=== PATIENT | female | born 1980 | race Hispanic/Latino ===

== ENCOUNTER 2018-05-07 08:22 | Emergency (ER) | payer SELFPAY ==
[2018-05-07] MEDS ORDERED: HYDROCODONE/APAP 7.5/325 MG TAB ONE (08:51)
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
== END 2018-05-07 09:39 | disposition home or self-care (01) ==
LOC: ER 08:22
DX: M25.561 Pain in right knee (principal); V49.49XA Driver injured in collision with other motor vehicles in traffic accident, initial encounter; E11.9 Type 2 diabetes mellitus without complications; Z79.4 Long term (current) use of insulin
CPT/HCPCS: 72125; 99284

== ENCOUNTER 2022-11-26 15:35 | Observation (INO) | payer BC ==
--- OUTSIDE RECORDS SUMMARY | 2022-11-26 15:51 | XMS REPORT | Continuity of Care Document ---
:[address] [facility] t Address [address] [place] [id number] Care Team Providers Name Role Phone Gianni Tim Attending Clinician Unavailable Problems This patient has no known problems. Allergies, Adverse Reactions, Alerts This patient has no known allergies or adverse reactions. Medications This patient has no known medications. Procedures This patient has no known procedures. Encounters Start End Encounter Admission Attending Care Care Encounter Source Date/Time Date/Time Type Type Clinicians Facility Department ID 2022-11-25 Outpatient JE Tim [facility] [id number] Common 08:45:02 Gianni [id number] [facility] Results This patient has no known results.
[2022-11-26 17:15] LABS: Specific Gravity 1.018 (1.005-1.030)
[2022-11-26 17:29] LABS: Albumin 3.7 g/dL (3.4-5.0); Bilirubin Total 0.3 mg/dL (0.2-1.0); Potassium 3.8 mEq/L (3.5-5.1); Protein, Total 8.4 g/dL (6.4-8.2)
[2022-11-26 17:30] LABS: Hematocrit 15.6 % (36.0-45.0); Lymphocytes % 28.4 % (15.3-44.8); MCV 52.2 fL (80-100); MPV 8.5 fL (7.6-11.3)
--- NOTE | 2022-11-26 19:09 | EDPHYS ---
Physician Documentation [facility] Name: Christin Ferrera Age: 42 yrs Sex: Female : 1980 Arrival Date: 11/26/2022 Time: 15:35 Bed 13 Private MD: Patricia Timh ED Physician Nate Mackay HPI: 11/26 16:02 This 42 yrs old Female presents to ER via Ambulatory with complaints of bs3 Abnormal Lab Results. 16:02 42-year-old female presents with possibly low hemoglobin she saw her primary care bs3 doctor for the first time in a very long time where they did a whole bunch of blood work and she was referred in today she notes that she has been tired for approximately 5 years she denies any black stools or bright red blood per rectum she notes she gets fairly heavy periods. Historical: - Allergies: 15:46 NKA; ss - Home Meds: 15:46 None [Active]; ss - PMHx: 15:46 Diabetes - IDDM; ss - Immunization history:: Adult Immunizations up to date. - Social history:: Smoking status: Patient denies any tobacco usage or history of. ROS: 19:07 Constitutional: Negative for fever, chills bs3 19:07 All other systems are negative. Exam: 19:07 Constitutional: This is a well developed, well nourished patient who is awake, alert, bs3 and in no acute distress. Head/Face: Normocephalic, atraumatic. Eyes: pale conjunctiva ENT: mmm, no posterior phyarngeal erythema Neck: Trachea midline, no thyromegaly, no neck stiffness Chest/axilla: Normal chest wall appearance and motion. Nontender with no deformity. No lesions are appreciated. Cardiovascular: Regular rate and rhythm with a normal S1 and S2. symmetric pulses in upper extremities Respiratory: Lungs have equal breath sounds bilaterally, clear to auscultation, no respiratory distress Abdomen/GI: Soft, non-tender, no rebound or guarding Skin: Warm, dry with normal turgor. Normal color with no rashes, no lesions, and no evidence of cellulitis. MS/ Extremity: Pulses equal, no cyanosis. Neurovascular intact. Full, normal range of motion. Neuro: Awake and alert, GCS 15, oriented to person, place, time, and situation. Cranial nerves II-XII grossly intact. Motor strength 5/5 in all extremities. Sensory grossly intact. Vital Signs: 15:41 BP 135 / 59; Pulse 95; Resp 16; Temp 98.5; Pulse Ox 96% ; Weight 56.7 kg; Height 5 ft. ss 3 in. ; 17:00 BP 122 / 62; Pulse 87; Resp 18; Pulse Ox 100% on R/A; eh3 18:00 BP 136 / 72; Pulse 90; Resp 18; Pulse Ox 100% on R/A; eh3 19:00 BP 121 / 50; Pulse 111; Resp 18; Pulse Ox 100% on R/A; eh3 15:41 Body Mass Index 22.14 (56.70 kg, 160.02 cm) ss MDM: 15:49 Patient medically screened. bs3 19:07 Differential Diagnosis Possible electrolyte abnormality possible anemia she has pale bs3 conjunctival and poor capillary refill she has heavy periods we will check and reassess Lab work notable for iron deficiency anemia will give 2 units and repeat CBC likely needs 1/3 unit will admit given the number of transfusions Dr. Aislinn velez. Data reviewed: vital signs, nurses notes. 11/26 15:59 Order name: CBC with Diff 3 11/26 15:59 Order name: Comprehensive Metabolic Panel; Complete Time: 17:36 3 11/26 15:59 Order name: Type And Screen 3 11/26 15:59 Order name: Iron Level; Complete Time: 17:36 3 11/26 15:59 Order name: TIBC; Complete Time: 17:36 3 11/26 15:59 Order name: Ferritin 3 11/26 15:59 Order name: Test, Urine; Complete Time: 17:23 bs3 11/26 18:01 Order name: Bb Add On bd 11/26 18:11 Order name: Packed RBC Leukored [facility] 11/26 18:26 Order name: ABO/RH no charge; Complete Time: 18:36 EDTN 11/26 17:37 Order name: Consent for Blood Transfusion; Complete Time: 19:27 bs3 11/26 17:37 Order name: IV Saline Lock; Complete Time: 18:00 bs3 11/26 18:06 Order name: Labs - recollect needed: collect abo rh no charge; Complete Time: 18:13 bd Administered Medications: No medications were administered Disposition Summary: 11/26/22 19:09 Hospitalization Ordered Hospitalization Status: Inpatient Admission bs3 Provider: Pavel Tao bs3 Location: Telemetry/MedSurg (observation) bs3 Condition: Stable bs3 Problem: new bs3 Symptoms: have improved bs3 Bed/Room Type: Standard bs3 Room Assignment: 409(11/26/22 20:24) cg Diagnosis - Iron deficiency anemia, unspecified bs3 Forms: - Medication Reconciliation Form bs3 - SBAR form bs3 Signatures: Dispatcher [employer] EDMS Neyda Zaragoza Shelby, RN RN ss Heather Jerome RN RN cg Nate Mackay MD MD bs3 Corrections: (The following items were deleted from the chart) 15:47 15:46 Home Meds: Toujeo SoloStar 300 unit/mL (1.5 mL) subcutaneous inpn 14 units daily; [facility] 20:24 19:09 bs3 cg
--- NOTE | 2022-11-26 19:09 | ER ---
Nurse's Notes [facility] Name: Christin Ferrera Age: 42 yrs Sex: Female : 1980 Arrival Date: 11/26/2022 Time: 15:35 Bed 13 Private MD: Gianni Tim Diagnosis: Iron deficiency anemia, unspecified Presentation: 11/26 15:41 Chief complaint: Patient states: SENT BY PCP, RAN, FOR BLOOD TRANSFUSION. Coronavirus ss screen: At this time, the client does not indicate any symptoms associated with coronavirus-19. Ebola Screen: No symptoms or risks identified at this time. Initial Sepsis Screen: Does the patient meet any 2 criteria? No. Patient's initial sepsis screen is negative. Does the patient have a suspected source of infection? No. Patient's initial sepsis screen is negative. Risk Assessment: Do you want to hurt yourself or someone else? Patient reports no desire to harm self or others. Onset of symptoms is unknown. 15:41 Method Of Arrival: Ambulatory ss 15:41 Acuity: RUPESH 3 ss Triage Assessment: 15:46 General: Appears in no apparent distress. Behavior is calm, cooperative, appropriate ss for age. Pain: Denies pain. EENT: No deficits noted. Neuro: No deficits noted. Cardiovascular: No deficits noted. Respiratory: No deficits noted. GI: No signs and/or symptoms were reported involving the gastrointestinal system. : No signs and/or symptoms were reported regarding the genitourinary system. Derm: Skin is pale. Musculoskeletal: No deficits noted. Historical: - Allergies: 15:46 NKA; ss - Home Meds: 15:46 None [Active]; ss - PMHx: 15:46 Diabetes - IDDM; ss - Immunization history:: Adult Immunizations up to date. - Social history:: Smoking status: Patient denies any tobacco usage or history of. Screenin:00 [facility] ED Fall Risk Assessment (Adult) Score/Fall Risk Level 0 - 2 = Low Risk. Abuse eh3 screen: Denies threats or abuse. Denies injuries from another. Nutritional screening: No deficits noted. Tuberculosis screening: No symptoms or risk factors identified. Assessment: 17:00 General: Appears in no apparent distress. comfortable, Behavior is calm, cooperative, eh3 appropriate for age. Pain: Denies pain. Neuro: Level of Consciousness is awake, alert, obeys commands, Oriented to person, place, time, situation. Cardiovascular: Capillary refill < 3 seconds Patient's skin is warm and dry. Respiratory: Airway is patent Respiratory effort is even, unlabored, Respiratory pattern is regular, symmetrical. GI: Abdomen is round non-distended. Derm: Skin is healthy with good turgor, Skin is dry, Skin is pale, Skin temperature is warm. Musculoskeletal: Circulation, motion, and sensation intact. 18:00 Reassessment: Patient appears in no apparent distress at this time. Patient and/or eh3 family updated on plan of care and expected duration. Pain level reassessed. Patient is alert, oriented x 3, equal unlabored respirations, skin warm/dry/pink. 19:00 Reassessment: Patient appears in no apparent distress at this time. Patient and/or eh3 family updated on plan of care and expected duration. Pain level reassessed. Patient is alert, oriented x 3, equal unlabored respirations, skin warm/dry/pink. 20:00 Reassessment: Patient appears in no apparent distress at this time. Patient and/or eh3 family updated on plan of care and expected duration. Pain level reassessed. Patient is alert, oriented x 3, equal unlabored respirations, skin warm/dry/pink. 20:25 Reassessment: Blood transfusion started at 2024. See transfusion record for additional [facility] documentation. Vital Signs: 15:41 BP 135 / 59; Pulse 95; Resp 16; Temp 98.5; Pulse Ox 96% ; Weight 56.7 kg; Height 5 ft. ss 3 in. ; 17:00 BP 122 / 62; Pulse 87; Resp 18; Pulse Ox 100% on R/A; eh3 18:00 BP 136 / 72; Pulse 90; Resp 18; Pulse Ox 100% on R/A; eh3 19:00 BP 121 / 50; Pulse 111; Resp 18; Pulse Ox 100% on R/A; eh3 15:41 Body Mass Index 22.14 (56.70 kg, 160.02 cm) ED Course: 15:37 Patient arrived in ED. im 15:37 Gianni Tim DO is Private Physician. im 15:46 Triage completed. ss 15:46 Arm band placed on. ss 15:49 Nate Mackay MD is Attending Physician. bs3 17:00 Patient has correct armband on for positive identification. Bed in low position. Call 3 light in reach. 17:00 Pulse ox on. NIBP on. eh3 17:16 Anna Matamoros, RN is Primary Nurse. eh3 19:08 Pavel Tao MD is Hospitalizing Provider. bs3 20:50 No provider procedures requiring assistance completed. Patient admitted, IV remains in eh3 place. Administered Medications: No medications were administered Medication: 20:52 VIS not applicable for this client. as6 Outcome: 19:09 Decision to Hospitalize by Provider. bs3 20:51 Admitted to Tele accompanied by nurse, room 409, with chart, Report called to Sera DOWNING as6 20:51 Condition: stable 20:51 Instructed on the need for admit. 21:04 Patient left the ED. cm10 Signatures: Bettina Harris RN RN Kulwinder Leal RN RN as6 Anna Matamoros, SALINA DOWNING [facility] Nate Mackay MD MD 3 Manasa Cazares Clarissa RN RN cm10 Corrections: (The following items were deleted from the chart) 15:47 15:46 Home Meds: Toujeo SoloStar 300 unit/mL (1.5 mL) subcutaneous inpn 14 units daily; [facility] 19:28 17:00 Patient has correct armband on for positive identification. Bed in low position. 3 Call light in reach. eh3
[2022-11-26] MEDS ORDERED: NA CHLORIDE 0.9% 250 ML ONE (20:01)
[2022-11-26 21:09] VITALS: O2SAT 100
[2022-11-26] MEDS ORDERED: DIPHENHYDRAMINE 25 MG TAB/CAP PO PRN (21:15)
[2022-11-26] MEDS ORDERED: ACETAMINOPHEN 325 MG TABLET PO PRN (21:15)
[2022-11-26 22:25] LABS: Anisocytosis 1+; Blood Morphology Comment NOTED (NOT SEEN); Hypochromasia 3+; Ovalocytes 1+; Platelet Estimate ADEQ; Poikilocytosis 2+; Teardrop Cell 1+; White Blood Cell Scan OK (OK)
[2022-11-26] MEDS ORDERED: ACETAMINOPHEN 500 MG TAB PO PRN (22:25)
[2022-11-26] MEDS ORDERED: ONDANSETRON 4 MG/2 ML VIAL IV PRN (22:25)
[2022-11-27 00:01] VITALS: BMI 22.1
[2022-11-27] MEDS ORDERED: PNEUMOCOCCAL VACCINE 0.5 ML IMVAC ONE (08:00)
[2022-11-27 08:01] VITALS: BP 114/59; TEMP 98.8
[2022-11-27 09:47] LABS: Hematocrit 25.3 % (36.0-45.0)
--- NOTE | 2022-11-27 21:28 | P.SSS ---
Patient History Date of Service: 11/27/22 Reason for admission: WEAKNESS, ANEMIA History of Present Illness: JAYSON IS DR. RONNA TONG'S PATIENT. I AM HELPING THE HOSPITAL TEAM TAKING THIS PATIENT THEY HAVE A DOCTOR ON LEAVE. JAYSON IS A DIABETIC WHO HAS NOT BEEN TO DOCTOR FOR ABOUT 5 YEARS THEY LOST INSURANCE. SHE IS ABLE TOGET SOME LANTUS FROM HER UNCLE WHO IS A [facility] PAT[facility]. SHE HAS BEEN BLEEDING HEAVILY FOR YEARS. HER HG IS DOWN TO 4. NOW AFTER 3 UNITS SHE IS UP TO 7 GM. SHE WILL GO TO DR. TONG FOR HER CARE AND DR. JACOBSON FOR MENORRHAGEA. Allergies No Known Allergies Allergy (Unverified 11/26/22 22:20) Home medications list reviewed: Yes - Past Medical/Surgical History Has patient received pneumonia vaccine in the past: Yes Diabetic: Yes - Social History Smoking Status: Never smoker Alcohol use: No CD- Drugs: No Caffeine use: No Place of Residence: Home Review of Systems 10-point ROS is otherwise unremarkable Physical Examination - Vital Signs Temperature: 98.8 F Blood Pressure: 114/59 Pulse: 75 Respirations: 14 Pulse Ox (%): 100 - Physical Exam General: Oriented x3, Mild distress HEENT: Atraumatic, PERRLA, Mucous membr. moist/pink, EOMI, Sclerae nonicteric Neck: Supple, 2+ carotid pulse no bruit, No LAD, Without JVD or thyroid abnormality Respiratory: Clear to auscultation bilaterally, Normal air movement Cardiovascular: Regular rate/rhythm, Normal S1 S2 Gastrointestinal: Normal bowel sounds, No tenderness Musculoskeletal: No tenderness Integumentary: No rashes Neurological: Normal gait, Normal speech, Normal strength at 5/5 x4 extr, Normal tone, Normal affect Lymphatics: No axilla or inguinal lymphadenopathy - Studies Laboratory Data (last 24 hrs) 11/26/22 16:37: WBC 3.60 L, Hgb 4.0 L*, Hct 15.6 L, Plt Count 162 - Diagnosis (Problem(s)) (1) Severe anemia Status: Acute Plan: ABOVE TRANSFUSED. STABLE FOR HOME. (2) Menorrhagia Status: Acute Plan: DR. JACOBSON TO EVALUATE. (3) Diabetes Status: Chronic Plan: SHE HAS APT WITH DR. RONNA TONG WHO MANAGES HER DM. Qualifiers: Diabetes mellitus type: type 2 - Disposition Disposition: ROUTINE DISCHARGE
== END 2022-11-27 10:16 | disposition home or self-care (01) ==
LOC: ER 15:35 → ERHOLD 19:48 → OBSVTOIN 20:05 → INTOOBSV 20:05 → 4TH 20:28
PROVIDERS: ADMIT Internal Medicine; ATTEND Internal Medicine
PROC: 30233N1 Transfusion of Nonautologous Red Blood Cells into Peripheral Vein, Percutaneous Approach (ICD-10-PCS; principal; 2022-11-26)
PROC: 30233N1 Transfusion of Nonautologous Red Blood Cells into Peripheral Vein, Percutaneous Approach (ICD-10-PCS; 2022-11-27)
DX: D64.9 Anemia, unspecified (principal); N92.0 Excessive and frequent menstruation with regular cycle; E11.9 Type 2 diabetes mellitus without complications
CPT/HCPCS: 85025; 36415; 86900; 86850; 81025; 86901; 82947 ×2; 86920 ×3; 85018; 85014; 82728; 83540; 80053; 84466; 90471; 90732; 99285; 36430 ×2; P9016 ×3; J7050

== ENCOUNTER 2022-12-30 08:21 | Day surgery (SDC) | payer BC ==
[2022-12-30 08:51] VITALS: BP 132/67; TEMP 97.8; O2SAT 100; BMI 21.2
[2022-12-30] MEDS ORDERED: SOD FERRIC GLUC COMPLX/SUCROSE 125 MG in NA CHLORIDE 0.9% 100 ML IV ONE (09:00)
== END 2022-12-30 09:52 | disposition home or self-care (01) ==
LOC: DS 08:21
PROVIDERS: ATTEND Obstetrics & Gynecology
DX: D50.0 Iron deficiency anemia secondary to blood loss (chronic) (principal)
CPT/HCPCS: 96365; J2916

== ENCOUNTER 2024-02-08 20:49 | Emergency (ER) | payer BC ==
[2024-02-08 21:29] LABS: Absolute Eosinophils 0.1 K/uL (0-0.5); Absolute Lymphocytes (CBC) 1.1 K/uL (0.7-4.9); Absolute Monocytes 0.3 K/uL (0.1-1.3); Absolute Neutrophil 1.8 K/uL (1.8-8.0); Basophils % 0.3 % (0-1.3); Eosinophils % 3.5 % (0-4.4); Hematocrit 23.4 % (36.0-45.0); Hemoglobin 6.6 g/dL (12.0-15.0); Lymphocytes % 33.5 % (15.3-44.8); MCH 15.8 pg (27.0-35.0); MCHC 28.1 g/dL (32.0-36.0); MCV 56.3 fL (80-100); MPV 8.8 fL (7.6-11.3); Monocytes % 8.7 % (3.3-12.3); Nucleated Red Blood Cells % 0.3 % (0-0); Platelets 311 thou/uL (152-406); RBC Red Blood Cell Count 4.15 M/uL (3.86-4.86); Red Cell Distribution Width 19.5 % (12.1-15.2)
[2024-02-08 21:37] LABS: Anion Gap 11.4 mEq/L (5.0-15.0); Potassium 3.4 mEq/L (3.5-5.1)
[2024-02-08 22:05] LABS: Anisocytosis 2+; Blood Morphology Comment NOTED (NOT SEEN); Hypochromasia 3+; Platelet Estimate ADEQ; White Blood Cell Scan OK (OK)
[2024-02-08] MEDS ORDERED: NA CHLORIDE 0.9% 250 ML ONE (22:05)
[2024-02-08 22:11] LABS: PT Prothrombin Time 10.2 SECONDS (9.4-12.5); PTT, Activated Partial Thromb 25.6 SECONDS (24.3-36.9); Protime INR 0.91
--- NOTE | 2024-02-09 01:24 | ER ---
Nurse's Notes [facility] Name: Christin Ferrera Age: 43 yrs Sex: Female : 1980 Arrival Date: 02/08/2024 Time: 20:49 Bed 5 Private MD: Diagnosis: Iron deficiency anemia, unspecified Presentation: 02/07 21:00 Chief complaint: Patient states: Friday my doctor called me with lab results of Hgb tm6 6.2. Coronavirus screen: Vaccine status: Patient reports receiving the 2nd dose of the covid vaccine. Ebola Screen: Patient negative for fever greater than or equal to 101.5 degrees Fahrenheit, and additional compatible Ebola Virus Disease symptoms Patient denies exposure to infectious person. Patient denies travel to an Ebola-affected area in the 21 days before illness onset. No symptoms or risks identified at this time. Initial Sepsis Screen: Does the patient meet any 2 criteria? Does the patient have a suspected source of infection? No. Patient's initial sepsis screen is negative. Risk Assessment: Do you want to hurt yourself or someone else? Patient reports no desire to harm self or others. Onset of symptoms was February 08, 2024. 21:00 Method Of Arrival: Ambulatory tm6 21:00 Acuity: RUPESH 3 tm6 Triage Assessment: 21:01 General: Appears in no apparent distress. Behavior is calm, cooperative. Pain: Denies tm6 pain. EENT: No signs and/or symptoms were reported regarding the EENT system. Neuro: Level of Consciousness is awake, alert, obeys commands, Oriented to person, place, time, situation. Cardiovascular: Patient's skin is warm and dry. Respiratory: Airway is patent Respiratory effort is even, unlabored, Respiratory pattern is regular, symmetrical. GI: No signs and/or symptoms were reported involving the gastrointestinal system. Abdomen is flat, non-distended. : No signs and/or symptoms were reported regarding the genitourinary system. Derm: No signs and/or symptoms reported regarding the dermatologic system. Musculoskeletal: No signs and/or symptoms reported regarding the musculoskeletal system. 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 - Infectious Disease History:: Denies. - Social history:: Smoking status: Patient denies any tobacco usage or history of. Patient uses alcohol, weekly. Screenin:20 [facility] ED Fall Risk Assessment (Adult) History of falling in the last 3 months, vc1 including since admission No falls in past 3 months (0 pts) Confusion or Disorientation No (0 pts) Intoxicated or Sedated No (0 pts) Impaired Gait No (0 pts) Mobility Assist Device Used No (0 pt) Altered Elimination No (0 pt) Score/Fall Risk Level 0 - 2 = Low Risk Oriented to surroundings, Maintained a safe environment, Educated pt \T\ family on fall prevention, incl call for assistance when getting out of bed. Abuse screen: Denies threats or abuse. Nutritional screening: No deficits noted. Tuberculosis screening: No symptoms or risk factors identified. Assessment: 21:00 General: Appears in no apparent distress. comfortable, Behavior is calm, cooperative, vc1 appropriate for age. Pain: Denies pain. Neuro: Level of Consciousness is awake, alert, obeys commands, Oriented to person, place, time, situation, Appropriate for age. Cardiovascular: Heart tones S1 S2 Capillary refill < 3 seconds Patient's skin is warm and dry. Rhythm is regular. Respiratory: Airway is patent Respiratory effort is even, unlabored, Respiratory pattern is regular, symmetrical, Breath sounds are clear bilaterally. GI: Abdomen is flat, non-distended, Bowel sounds present X 4 quads. Abd is soft and non tender. : No deficits noted. No signs and/or symptoms were reported regarding the genitourinary system. EENT: No deficits noted. No signs and/or symptoms were reported regarding the EENT system. Derm: Skin is intact, is healthy with good turgor, Skin is dry, Skin is normal, Skin temperature is warm. Musculoskeletal: No deficits noted. No signs and/or symptoms reported regarding the musculoskeletal system. Circulation, motion, and sensation intact. Range of motion: intact in all extremities. 22:20 Reassessment: Patient appears in no apparent distress at this time. No changes from vc1 previously documented assessment. Patient and/or family updated on plan of care and expected duration. Pain level reassessed. Patient is alert, oriented x 3, equal unlabored respirations, skin warm/dry/pink. 02/08 00:33 Reassessment: Patient appears in no apparent distress at this time. No changes from vc1 previously documented assessment. Patient and/or family updated on plan of care and expected duration. Pain level reassessed. Patient is alert, oriented x 3, equal unlabored respirations, skin warm/dry/pink. 01:26 Reassessment: discharge pending blood transfusion. vc1 02:46 Reassessment: Patient appears in no apparent distress at this time. No changes from vc1 previously documented assessment. Patient and/or family updated on plan of care and expected duration. Pain level reassessed. Patient is alert, oriented x 3, equal unlabored respirations, skin warm/dry/pink. Vital Signs: 02/07 20:59 BP 151 / 75; Pulse 86; Resp 18; Temp 98.8; Pulse Ox 100% on R/A; Weight 66.68 kg; tm6 Height 5 ft. 5 in. ; Pain 0/10; 22:19 BP 142 / 73; Pulse 86; Resp 18; Pulse Ox 100% ; vc1 02/08 00:15 BP 125 / 68; Pulse 88; Resp 21; Temp 97.6; Pulse Ox 100% ; vc1 02:45 BP 125 / 62; Pulse 84; Resp 17; Pulse Ox 100% ; vc1 02/07 20:59 Body Mass Index 24.46 (66.68 kg, 165.1 cm) tm6 02/07 20:59 Pain Scale: Adult tm6 00:15 See transfusion record for further vital signs vc1 ED Course: 02/07 20:56 Patient arrived in ED. jj6 20:57 Nanda Chaves PA-C is PHCP. sb4 20:57 Ish Bird MD is Attending Physician. sb4 21:00 Triage completed. tm6 21:01 Arm band placed on right wrist. tm6 21:01 Patient has correct armband on for positive identification. Bed in low position. Call vc1 light in reach. Placed in gown. clipper automatic on. Pulse ox on. NIBP on. 21:03 Silvina Lyles, SALINA is Primary Nurse. vc1 21:15 Inserted saline lock: 20 gauge in right antecubital area, using aseptic technique. vc1 Blood collected. Flushed with 10 mL NS. 02/08 00:41 No provider procedures requiring assistance completed. vc1 01:24 Gianni Tim DO is Referral Physician. sb4 03:41 Provided Education on: medication and discharge follow up. al5 03:41 IV discontinued, intact, bleeding controlled, No redness/swelling at site. Pressure al5 dressing applied. Administered Medications: 03:16 Drug: Acetaminophen PO 650 mg PO once Route: PO; vc1 03:16 Follow up: Response: Medication administered at discharge. vc1 Medication: 02/07 22:21 VIS not applicable for this client. vc1 Outcome: 02/08 01:24 Discharge ordered by MD. sb4 03:42 Discharged to home ambulatory, al5 03:42 Condition: good 03:42 Discharge instructions given to patient, Instructed on discharge instructions, follow up and referral plans. medication usage, Demonstrated understanding of instructions, follow-up care, medications, Prescriptions given X 1, 03:42 Patient left the ED. al5 Signatures: Airam Motaj6 Silvina Lyles, RN RN vc1 Nanda Chaves, PA-C PA-C sb4 Gogo Mccall RN RN tm6 Brisa Brink RN RN al5 Corrections: (The following items were deleted from the chart) 02/07 21:02 21:00 Chief complaint: Patient states: Friday my doctor called me with lab results of tm6 Hgb 6.3 tm6
--- NOTE | 2024-02-09 01:25 | EDPHYS ---
Physician Documentation [facility] Name: Christin Ferrera Age: 43 yrs Sex: Female : 1980 Arrival Date: 02/08/2024 Time: 20:49 Bed 5 Private MD: ED Physician Ish Bird HPI: 02/07 21:06 This 43 yrs old Female presents to ER via Ambulatory with complaints of sb4 Abnormal Lab Results. 21:21 Patient states that she had routine blood work done last week and was notified 2 days sb4 ago that her hemoglobin was at 6.2 and that she needed a blood transfusion. She states that she has been dealing with anemia for the past year or so, possibly secondary to menorrhagia. She is not taking any iron supplementation. She has not had a blood transfusion in over a year. She denies any weakness, shortness of breath, dizziness. 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 - Infectious Disease History:: Denies. - Social history:: Smoking status: Patient denies any tobacco usage or history of. Patient uses alcohol, weekly. ROS: 21:21 Constitutional: Negative for fever, chills, and weight loss, sb4 21:21 All other systems are negative, Exam: 21:21 Constitutional: This is a well developed, well nourished patient who is awake, alert, sb4 and in no acute distress. Head/Face: Normocephalic, atraumatic. Eyes: Extra-ocular motions intact. Periorbital areas with no swelling, redness, or edema. ENT: Mucous membranes moist. Cardiovascular: Regular rate and rhythm with a normal S1 and S2. Respiratory: Lungs have equal breath sounds bilaterally, clear to auscultation and percussion. No rales, rhonchi or wheezes noted. No increased work of breathing, no retractions or nasal flaring. Abdomen/GI: Soft, non-tender, no distension. Skin: Warm, dry with normal turgor. Normal color with no rashes, no lesions, and no evidence of cellulitis. Vital Signs: 20:59 BP 151 / 75; Pulse 86; Resp 18; Temp 98.8; Pulse Ox 100% on R/A; Weight 66.68 kg; tm6 Height 5 ft. 5 in. ; Pain 0/10; 22:19 BP 142 / 73; Pulse 86; Resp 18; Pulse Ox 100% ; vc1 02/08 00:15 BP 125 / 68; Pulse 88; Resp 21; Temp 97.6; Pulse Ox 100% ; vc1 02:45 BP 125 / 62; Pulse 84; Resp 17; Pulse Ox 100% ; vc1 02/07 20:59 Body Mass Index 24.46 (66.68 kg, 165.1 cm) tm6 02/07 20:59 Pain Scale: Adult tm6 00:15 See transfusion record for further vital signs vc1 MDM: 02/07 21:00 Patient medically screened. sb4 02/08 01:23 Data reviewed: vital signs, nurses notes, lab test result(s), and as a result, I will sb4 discharge patient. Counseling: I had a detailed discussion with the patient and/or guardian regarding the historical points, exam findings, and any diagnostic results supporting the discharge/admit diagnosis, lab results, the need for outpatient follow up, for definitive care, to return to the emergency department if symptoms worsen or persist or if there are any questions or concerns that arise at home. 02/07 21:03 Order name: CBC with Diff; Complete Time: 22:06 sb4 02/07 21:03 Order name: BMP; Complete Time: 21:39 sb4 02/07 21:03 Order name: Type And Screen sb4 02/07 21:08 Order name: Iron Level; Complete Time: 22:57 sb4 02/07 21:08 Order name: Fibrinogen; Complete Time: 22:12 sb4 02/07 21:08 Order name: PT-INR; Complete Time: 22:12 sb4 02/07 21:08 Order name: Ptt, Activated; Complete Time: 22:12 sb4 02/07 21:34 Order name: CBC Smear Scan; Complete Time: 22:06 EDNH 02/07 22:37 Order name: Packed RBCs (Additional Unit) EDNH 02/07 21:03 Order name: IV Start; Complete Time: 21:41 sb4 Administered Medications: 03:16 Drug: Acetaminophen PO 650 mg PO once Route: PO; vc1 03:16 Follow up: Response: Medication administered at discharge. vc1 Disposition Summary: 02/09/24 01:24 Discharge Ordered Notes: Location: Home sb4 Problem: new sb4 Symptoms: have improved sb4 Condition: Stable sb4 Diagnosis - Iron deficiency anemia, unspecified sb4 Followup: sb4 - With: Gianni Tim, DO - When: 2 - 3 days - Reason: Recheck today's complaints, Re-evaluation by your physician Discharge Instructions: - Discharge Summary Sheet sb4 - Iron Deficiency Anemia, Adult sb4 - Iron-Rich Diet sb4 - Blood Transfusion, Adult, Care After sb4 Forms: - Patient Portal Instructions sb4 - Leadership Thank You Letter sb4 Prescriptions: - Ferrous Sulfate 325 mg (65 mg Iron) Oral tablet - take 1 tablet ORAL route once daily; 90 tablet; Refills: 0, Product Selection sb4 Permitted Addendum: 02/13/2024 16:18 I was immediately available for consultation during this patient's visit. I did not e c2 personally see the patient or discuss the patient with the RAMONA. . Signatures: Dispatcher [employer] EDMS Silvina Lyles RN RN vc1 Nanda Chaves PA-C PAKaylie sb4 Ish Bird MD MD ec2 Gogo Mccall RN RN tm6 Corrections: (The following items were deleted from the chart) 02/07 21:04 21:04 CBC+H.LAB.BRZ ordered. EDMS EDMS 21:04 21:04 BASIC METABOLIC PANEL+C.LAB.BRZ ordered. EDMS EDMS 21:04 21:04 TYPE AND SCREEN+BB.LAB.BRZ ordered. EDMS EDMS 21:22 21:21 Patient states that she had routine blood work done last week and was notified 2 sb4 days ago that her hemoglobin was at 6.2 and that she needed a blood transfusion. She states that she has been dealing with anemia for the past year or so, possibly secondary to menorrhagia. She is not taking any iron supplementation. She has not had a blood transfusion in over a year. sb4
[2024-02-09] MEDS ORDERED: ACETAMINOPHEN 325 MG TABLET ONE (03:07)
[2024-02-09 03:59] VITALS: O2SAT 100
[2024-02-09 04:02] VITALS: TEMP 97.6
[2024-02-09 04:04] VITALS: BP 125/62
== END 2024-02-09 03:42 | disposition home or self-care (01) ==
LOC: ER 20:49
PROC: 30233N1 Transfusion of Nonautologous Red Blood Cells into Peripheral Vein, Percutaneous Approach (ICD-10-PCS; principal; 2024-02-09)
DX: D50.9 Iron deficiency anemia, unspecified (principal); E11.9 Type 2 diabetes mellitus without complications; E78.00 Pure hypercholesterolemia, unspecified
CPT/HCPCS: 85025; 80048; 36415; 86900; 85384; 86850; 85610; 86901; 85730; 86920; 82728; 99284; 36430; P9016; J7050